=== PATIENT | male | born 1990 | race African-American/Black ===

== ENCOUNTER 2025-06-28 09:47 | Outpatient (REF) | payer OTHER, SELFPAY ==
--- OUTSIDE RECORDS SUMMARY | 2025-06-28 09:00 | XMS_ITS | Encounter Summary ---
Author Organization [employer] Address [address] [facility] [address] [place] [address] Care Team Providers Care Company Secretary Name Role Phone Beatris Rinaldi NP Primary Care Provider [phone] Reason for Referral * Consultation (Routine) - Pending Review Specialty Diagnoses / Procedures Referred By Kirt forrest Referred To Contact Sleep Medicine Diagnoses Apnea Beatris Rinaldi NP [address] [place] [address] Phone: tel: fax: Referral ID Status Reason Start Date Expiration Date Visits Requested Visits Authorized [id number] Pending Review Specialty Services Required 06/28/2025 06/28/2026 1 1 * Consultation (Routine) - Pending Review Specialty Diagnoses / Procedures Referred By Kirt forrest Referred To Contact Orthopaedic Surgery Diagnoses Chronic right shoulder pain Beatris Rinaldi NP [address] [place] [address] Phone: tel: fax: Referral ID Status Reason Start Date Expiration Date Visits Requested Visits Authorized [id number] Pending Review Specialty Services Required 06/28/2025 06/28/2026 1 1 * Consultation (Routine) - Pending Review Specialty Diagnoses / Procedures Referred By Kirt forrest Referred To Contact Physical Therapy Diagnoses Chronic right shoulder pain Beatris Rinaldi NP [address] [place] [address] Phone: tel: fax: Referral ID Status Reason Start Date Expiration Date Visits Requested Visits Authorized [id number] Pending Review Specialty Services Required 06/28/2025 06/28/2026 1 1 Encounter Details Date Type Department Care Team (Late st Contact Info) Description 06/28/2025 9:00 AM EDT Office Visit [facility] MEDICINE [address] [place] [address] Beatris Rinaldi NP [address] [place] [address] Mild intermittent asthma, unspecified whether complicated (Primary Dx); Elevated blood pressure reading without diagnosis of hypertension; Healthcare maintenance; Chronic right shoulder pain; Apnea; Allergic rhinitis due to other allergic trigger, unspecified seasonality; Dietary counseling; Exercise counseling Social History Tobacco Use Types Packs/Day Years Used Date Smoking Tobacco: Never Passive Smoke Exposure: Never Smokeless Tobacco: Never Tobacco Cessation:Counseling Given: Not Answered Alcohol Use Standard Drinks/Week Comments Never 0 (1 standard drink = 0.6 oz pur e alcohol) Depression Answer Date Recorded Patient Health Questionnaire-9 Score 0 06/28/2025 Patient Health Questionnaire-9 Score 0 06/28/2025 Last PHQ-9: Questionnaire Data Not on file 0 06/28/2025 Housing Stability Answer Date Recorded What is your housing situation today? I have jailyn ellington 06/28/[address] you li ve. Do you have problems with any of the following? None of the above 06/28/2025 Food Insecurity Answer Date Recorded Within the past 12 months, y ou worried that your food would run out before you got money to buy more: Never True 06/28/2025 Within the past 12 months,th e food you bought just didn't last and you didn't have enough money to get more: Never True Transportation Answer Date Recorded In the past 12 months, has l ack of transportation kept you from medical appts, meetings, work or from getting things needed for daily living? No 06/28/2025 Utilities Answer Date Recorded In the past 12 months, has t he electric, gas, oil or water company threatened to shut off services in your home? No 06/28/2025 Depression Answer Date Recorded Patient Health Questionnaire-2 Score 0 06/28/2025 Internet Access Answer Date Recorded Internet Access Q1 No 06/28/2025 Internet Access Q2 I do not want or need it 06/12 Sex and Gender Information Value Date Recorded Sex Assigned at Male 08/11/2022 10:33 AM EDT Legal Sex Male 10:33 AM EDT Gender Identity Male 06/26/2025 9:26 AM EDT Sexual Orientation Official Use Only; I nformation not collected 06/26/2025 9:26 AM EDT documented as of this encounter Last Filed Vital Signs Vital Sign Reading Time Taken Comments Blood Pressure 132/80 06/28/2025 9:06 AM EDT Pulse 73 06/28/2025 9:06 AM EDT Temperature 36.4 C (97.6 F) 06/28/2025 9:06 AM EDT Respiratory Rate 16 06/28/2025 9:06 AM EDT Oxygen Saturation 98% 06/28/2025 9:06 AM EDT Inhaled Oxygen Concentration - - Weight 103 kg (227 lb 3.2 oz) 06/28/2025 9:06 AM EDT Height 170.2 cm (5' 7 ) 06/28/2025 9:06 AM EDT Body Mass Index 35.58 06/28/2025 9:06 AM EDT documented in this encounter Functional Status * Over the past 2 weeks, how often have you been bothered by any of the following problems? Question Answer Date of Assessment Author Patient Health Questionnaire -2 Score 0 06/28/2025 9:08 AM EDT Josefina Mock MA * Little interest or pleasure in doing things Answer Date of Assessment Author Not at all 06/28/2025 9:08 AM EDT Tony Mock MA * Feeling down, depressed, or hopeless Answer Date of Assessment Author Not at all 06/28/2025 9:08 AM WYATTT Tony Mock MA * Trouble falling or staying asleep, or sleeping too much Answer Date of Assessment Author Not at all 06/28/2025 9:08 AM WYATTT Tony Mock MA * Feeling tired or having little energy Answer Date of Assessment Author Not at all 06/28/2025 9:08 AM EDT Tony Mock MA * Poor appetite or overeating Answer Date of Assessment Author Not at all 06/28/2025 9:08 AM Tony Mejias MA * Feeling bad about yourself - or that you are a failure or have let yourself or your family down Answer Date of Assessment Author Not at all 06/28/2025 9:08 AM Tony Mejias MA * Trouble concentrating on things, such as reading the newspaper or watching television Answer Date of Assessment Author Not at all 06/28/2025 9:08 AM Tony Mejias MA * Moving or speaking so slowly that other people could have noticed? Or the opposite - being so fidgety or restless that you have been moving around a lot more than usual. Answer Date of Assessment Author Not at all 06/28/2025 9:08 AM Tony Mejias MA * Thoughts that you would be better off or hurting yourself in some way Answer Date of Assessment Author Not at all 06/28/2025 9:08 AM Tony Mejias MA * Patient Health Questionnaire-9 Score Answer Date of Assessment Author 0 06/28/2025 9:08 AM Tony Mejias MA * Over the last 2 weeks, how often have you been bothered by any of the following problems? Question Answer Date of Assessment Author Feeling nervous, anxious, or on edge 0 06/28/2025 9:08 AM Josefina Mejias MA Not being able to stop or co ntrol worrying 0 06/28/2025 9:08 AM Josefina Mejias MA Worrying too much about diff erent things 0 06/28/2025 9:08 AM Josefina Mejias MA Trouble relaxing 0 06/28/2025 9:08 AM Josefina Torre MA Being so restless that it is hard to sit still 0 06/28/2025 9:08 AM Josefina Mejias MA Becoming easily annoyed or irritable 0 06/28/2025 9:08 AM Josefina Mejias MA Feeling afraid as if somethi ng awful might happen 0 06/28/2025 9:08 AM EDT Josefina Mock MA WARD-7 Total Score 0 06/28/2025 9:08 AM EDT Josefina Mock MA documented as of this encounter Miscellaneous Notes * Assessment & Plan Note - Beatris Rinaldi NP - 06/28/2025 9:00 AM EDTAssociated Problem(s): Mild intermittent asthma * Assessment & Plan Note - Beatris Rinaldi NP - 06/28/2025 9:00 AM EDTAssociated Problem(s): Elevated blood pressure reading without diagnosis of hypertension * Assessment & Plan Note - Beatris Rinaldi NP - 06/28/2025 9:00 AM EDTAssociated Problem(s): Healthcare maintenance Orders: Lipid Panel, Standard; Future Comprehensive Metabolic Panel; Future Hemoglobin A1c; Future HIV-1/2 Antigen and Antibodies, Fourth Generation, with Reflexes; Future Hepatitis C Antibody with Reflex to HCV, RNA, Quantitative, Real-Time PCR; Future Chlamydia/N. Gonorrhoeae, PCR, Urine * Assessment & Plan Note - Beatris Rinaldi NP - 06/28/2025 9:00 AM EDTAssociated Problem(s): Chronic right shoulder pain Orders: Referral to Physical Therapy; Future Referral to Orthopaedic Surgery; Future * Assessment & Plan Note - Beatris Rinaldi NP - 06/28/2025 9:00 AM EDTAssociated Problem(s): Apnea Orders: Referral to Sleep Medicine; Future * Assessment & Plan Note - Beatris Rinaldi NP - 06/28/2025 9:00 AM EDTAssociated Problem(s): Allergic rhinitis * Assessment & Plan Note - Beatris Rinaldi NP - 06/28/2025 9:00 AM EDTAssociated Problem(s): Dietary counseling * Assessment & Plan Note - Beatris Rinaldi NP - 06/28/2025 9:00 AM EDTAssociated Problem(s): Exercise counseling documented in this encounter Plan of Treatment Upcoming Encounters Date Type Department Care Team (Late st Contact Info) Description 08/28/2025 10:15 AM EST Office Visit [facility] MEDICINE [address] [place] [address] Beatris Rinaldi NP [address] [place] [address] Scheduled Orders Name Type Priority Associated Diagnoses Orde r Schedule Lipid Panel, Standard Lab Routine Healthcare maintenance Expected: 06/28/2025 (Approximate), Expires: 06/28/2026 Comprehensive Metabolic Panel Lab Routine Healthcare maintenance Expected: 06/28/2025 (Approximate), Expires: 06/28/2026 Hemoglobin A1c Lab Routine Healthcare maintenance Expected: 06/28/2025 (Approximate), Expires: 06/28/2026 HIV-1/2 Antigen and Antibodies, Fourth Generation, with Reflexes Lab Routine Healthcare maintenance Expected: 06/28/2025 (Approximate), Expires: 06/28/2026 Hepatitis C Antibody with Reflex to HCV, RNA, Quantitative, Real-Time PCR Lab Routine Healthcare maintenance Expected: 06/28/2025, Expires: 06/28/2026 Chlamydia/N. Gonorrhoeae, PCR, Urine Lab Routine Healthcare maintenance Ordered: 06/28/2025 Scheduled Referrals Name Type Priority Associated Diagnoses Order Schedule Referral to Physical Therapy Outpatient Referral Routine Chronic right shoulder pain Expected: 06/28/2025 (Approximate), Expires: 06/28/2026 Referral to Orthopaedic Surgery Outpatient Referral Routine Chronic right shoulder pain Expected: 06/28/2025 (Approximate), Expires: 06/28/2026 Referral to Sleep Medicine Outpatient Referral Routine Apnea Expected: 06/28/2025 (Approximate), Expires: 06/28/2026 documented as of this encounter Visit Diagnoses Diagnosis Mild intermittent asthma, unspecified whether complicated- Primary Elevated blood pressure reading without diagnosis of hypertension Healthcare maintenance Chronic right shoulder pain Pain in joint, shoulder region Apnea Allergic rhinitis due to other allergic trigger, unspecified seasonality Dietary counseling Dietary surveillance and counseling Exercise counseling documented in this encounter Additional Health Concerns Assessment Noted Time PHQ-9 Depression Total Score: 0 06/28/20 9:08 AM EDT documented as of this encounter Care Teams Company Secretary Relationship Specialty Start Date End Date Beatris Rinaldi NP [address] [place] [id number] PCP - General Family Medicine 06/28/25 documented as of this encounter
--- OUTSIDE RECORDS SUMMARY | 2025-06-28 11:38 | XMS_ITS | Clinical Summary ---
Author Organization [facility] Address [address] [place] [address] Care Team Providers Care Medical Dermatologist Name Role Phone Unavailable Primary Care Provider Unavailabl e Social History Tobacco Use Types Packs/Day Years Used Date Smoking Tobacco: Never Assessed Sex and Gender Information Value Date Recorded Sex Assigned at Not on file Legal Sex Male 1:38 PM EDT Gender Identity Not on file Sexual Orientation Not on file Plan of Treatment Health Maintenance Due Date Last Done Comments Hepatitis B Vaccines (1 of 3 - 19+ 3-dose series) 2008 Cholesterol Screening (Lipid Panel) 05/04/2024 HIV Screening 05/04/2024 Hepatitis C Screening 05/04/2024 Social Influencers of Health Screening 05/04/2024 Depression Screening 10/12/2024 COVID-19 Vaccine (1 - 2023-2 5 season) 2025 Influenza Vaccine (#1) 2025 DTaP,Tdap,and Td Vaccines (2 - Td or Tdap) 01/26/2034 01/27/2024 HIB Vaccines Aged Out No longer eligi ble based on patient's age to complete this topic HPV Vaccines Aged Out No longer eligi ble based on patient's age to complete this topic Hepatitis A Vaccines Aged Out No long er eligible based on patient's age to complete this topic IPV Vaccines Aged Out No longer eligi ble based on patient's age to complete this topic MMR Vaccines Aged Out No longer eligi ble based on patient's age to complete this topic Meningococcal ACWY Vaccine Aged Out N o longer eligible based on patient's age to complete this topic Meningococcal B Vaccine Aged Out No l onger eligible based on patient's age to complete this topic Pneumococcal Vaccine: Pediat rics (0 to 5 Years) and At-Risk Patients (6 to 49 Years) Aged Out No longer eligi ble based on patient's age to complete this topic RSV Immunization Patients Un akhil 20 months Aged Out No longer eligible b ased on patient's age to complete this topic Varicella Vaccines Aged Out No longer eligible based on patient's age to complete this topic
--- OUTSIDE RECORDS SUMMARY | 2025-06-28 11:38 | XMS_ITS | Encounter Summary ---
Author Organization [employer] Address [address] [facility] [address] [place] [address] Care Team Providers Care Specialty Trimmer Name Role Phone Beatris Rinaldi RICH Primary Care Provider [phone] Encounter Details Date Type Department Care Team (Latest Contact Info) Description 06/28/2025 Travel Social History Tobacco Use Types Packs/Day Years Used Date Smoking Tobacco: Never Passive Smoke Exposure: Never Smokeless Tobacco: Never Alcohol Use Standard Drinks/Week Comments Never 0 [...] AM EDT documented as of this encounter Functional Status * Over the past 2 weeks, how often have you been bothered by any of the following problems? Question Answer Date of Assessment Author Patient Health Questionnaire -2 Score 0 06/28/2025 9:08 AM Josefina Mejias MA * Little interest or pleasure in doing things Answer Date of Assessment Author Not at all 06/28/2025 9:08 AM Tony Mejias MA * Feeling down, depressed, or hopeless Answer Date of Assessment Author Not at all 06/28/2025 9:08 AM Tony Mejias MA * Trouble falling or staying asleep, or sleeping too much Answer Date of Assessment Author Not at all 06/28/2025 9:08 AM Tony Mejias MA * Feeling tired or having little energy Answer Date of Assessment Author Not at all 06/28/2025 9:08 AM Tony Mejias MA * Poor appetite or overeating Answer [...] awful might happen 0 06/28/2025 9:08 AM Josefina Mejias MA WARD-7 Total Score 0 06/28/2025 9:08 AM Josefina Mejias MA documented as of this encounter Plan of Treatment Upcoming Encounters Date Type Department Care Team (Late st Contact Info) Description 08/28/2025 10:15 AM EST Office Visit [facility] MEDICINE [address] [place] [address] Beatris Rinaldi NP [address] [place] [address] documented as of this encounter Visit Diagnoses Not on filedocumented in this encounter Additional Health Concerns Assessment Noted Time PHQ-9 Depression Total Score: 0 06/28/20 9:08 AM EDT documented as of this encounter Care Teams Specialty Trimmer Relationship Specialty Start Date End Date Beatris Rinaldi NP [address] [place] [id number] PCP - General Family Medicine 06/28/25 documented as of this encounter
--- OUTSIDE RECORDS SUMMARY | 2025-06-28 11:38 | XMS_ITS | Clinical Summary ---
Author Organization [employer] Address [address] [facility] 7t [place] [address] Care Team Providers Care Embossing Toolsetter Name Role Phone Beatris Rinaldi RICH Primary Care Provider [phone] Allergies No known active allergies Medications fluticasone (Flonase) 50 MCG/ACT nasal spray Administer 1-2 sprays into each nostril Once per day. Shake gently. Before first use, prime pump. After use, clean tip and replace cap. 16 g 2 5 06/28/20 26 Active Active Problems Problem Noted Date Diagnosed Date Mild intermittent asthma 06/28/2025 Assessment & Plan (06/28/2025 9:50 AM EDT): Elevated blood pressure read ing without diagnosis of hypertension 06/28/2025 Assessment & Plan (06/28/2025 9:50 AM EDT): Healthcare maintenance 06/28/2025 Assessment & Plan (06/28/2025 9:50 AM EDT): Orders: Lipid Panel, Standard; Future Comprehensive Metabolic Panel; Future Hemoglobin A1c; Future HIV-1/2 Antigen and Antibodies, Fourth Generation, with Reflexes; Future Hepatitis C Antibody with Reflex to HCV, RNA, Quantitative, Real-Time PCR; Future Chlamydia/N. Gonorrhoeae, PCR, Urine Chronic right shoulder pain 06/28/2025 Assessment & Plan (06/28/2025 9:50 AM EDT): Orders: Referral to Physical Therapy; Future Referral to Orthopaedic Surgery; Future Apnea 06/28/2025 Assessment & Plan (06/28/2025 9:50 AM EDT): Orders: Referral to Sleep Medicine; Future Allergic rhinitis 06/28/2025 Assessment & Plan (06/28/2025 9:50 AM EDT): Dietary counseling 06/28/2025 Overview (06/28/2025): Dietary Recommendations: Fruits, vegetables, whole grains, protein foods, and fat-free or low-fat dairy products are healthy choices. Eat different types of protein foods in your diet. This can include seafood, lean meats, poultry, beans, peas, lentils, nuts, seeds, soy products, and eggs. Limit foods and beverages higher in added sugars, saturated fat, and sodium. Exercise Recommendations: At least 150 minutes of moderate-intensity physical activity per week, or an equivalent combination of moderate- and vigorous-intensity activity Assessment & Plan (06/28/2025 9:50 AM EDT): Exercise counseling 06/28/2025 Assessment & Plan (06/28/2025 9:50 AM EDT): Encounters Date Type Department Care Team Description 06/28/2025 9:00 AM EDT Office Visit [facility] MEDICINE [address] [place] [address] Beatris Rinaldi NP Mild intermittent asthma, unspecified whether complicated (Primary Dx); Elevated blood pressure reading without diagnosis of hypertension; Healthcare maintenance; Chronic right shoulder pain; Apnea; Allergic rhinitis due to other allergic trigger, unspecified seasonality; Dietary counseling; Exercise counseling 06/28/2025 Travel 06/22/2025 Telephone [facility] [address] [place] [address] Beatris Rinaldi NP from Last 3 Months Social History Tobacco Use Types Packs/Day Years [...] nformation not collected 06/26/2025 9:26 AM EDT Last Filed Vital Signs Vital Sign Reading [...] Mass Index 35.58 06/28/2025 9:06 AM EDT Plan of Treatment Upcoming Encounters Date Type Department Care Team (Late st Contact Info) Description 08/28/2025 10:15 AM EST Office Visit [facility] MEDICINE [address] [place] [address] Beatris Rinaldi NP [address] [place], [place] [id number] Health Maintenance Due Date Last Done Comments HIV Screening 1989 Lipid Panel 1989 Family Planning (PISQ) 2004 HPV Vaccines (1 - Male 3-dos e series) 2004 Hepatitis C Screening 2007 Hepatitis B Vaccines (1 of 3 - 19+ 3-dose series) 2008 Pneumococcal Vaccine: Pediatrics (0 to 5 Years) and At-Risk Patients (6 to 49) Years (1 of 2 - PCV) 2008 COVID-19 Vaccine ( - 2023-2 5 season) 2025 Influenza Vaccine (#1) 2025 Alcohol/Substance Use Screening 06/28/2026 06/28/2025 Depression Screening 06/28/2026 06/28/2025, 06/28/2025 Disability Screening 06/28/2026 06/28/2025 SDOH Screening 06/28/2026 06/28/2025 Tobacco Screening 06/28/2026 06/28/2025 DTaP/Tdap/Td Vaccines (2 - T d or Tdap) 01/26/2034 01/27/2024 Zoster Vaccines (1 of 2) 2039 RSV Patients and Patients Aged 60 years or older (1 - 1-dose 75+ series) 2064 HIB Vaccines Aged Out No longer eligi [...] patient's age to complete this topic Meningococcal Vaccine Aged Out No poncho lisa eligible based on patient's age to complete this topic RSV under 20 months Aged Out No longe r eligible based on patient's age to complete this topic Rotavirus Vaccines Aged Out No longer eligible based on patient's age to complete this topic Insurance [employer] PPO Care Teams Embossing Toolsetter Relationship Specialty Start Date End Date Beatris Rinaldi NP [address] [place] [id number] PCP - General Family Medicine 06/28/25
[2025-06-28 11:51] LABS: Hemoglobin A1C 145.1436 umol/L; Total Hemoglobin (HGBA1C) 3839.3287 umol/L
[2025-06-28 11:59] LABS: Alanine Aminotransferase 43 U/L (0-40); Albumin Level 4.4 g/dL (3.5-5.0); Alkaline Phosphatase 104 U/L (39-117); Anion Gap 8 (12-20); Aspartate Amino Transferase 32 U/L (5-37); Blood Urea Nitrogen 11 mg/dL (9-16); Calcium 9.0 mg/dL (8.4-10.2); Carbon Dioxide 29 mmol/L (22-29); Chloride 110 mmol/L (96-108); Cholesterol 154 mg/dL (<200); Estimated Glomerular Filt Rate > 60; HDL Cholesterol 43 mg/dL (>40); Potassium 4.1 mmol/L (3.3-5.1); Sodium 143 mmol/L (135-145); Total Protein 6.8 g/dL (6.5-8.0); Triglycerides 67 mg/dL (<150)
[2025-06-29 05:15] LABS: HIV Num 1 0.08 S/CO (0.00-0.99); ~HepC Num1 0.09 S/CO (0.00-0.79); ~Hepatitis C Antibody Nonreactive (Nonreactive)
[2025-06-29 10:04] LABS: CT PCR Urine NOT DETECTED (Not Detect.); NG PCR Urine NOT DETECTED (Not Detect.)
== END 2025-06-28 09:48 | disposition home or self-care (01) ==
LOC: HO.HHCL 09:47
PROVIDERS: PCP Nurse Practitioner Family; Visit Provider Nurse Practitioner Family
DX: Z00.00 Encounter for general adult medical examination without abnormal findings (principal); Z13.6 Encounter for screening for cardiovascular disorders; Z13.1 Encounter for screening for diabetes mellitus; Z11.59 Encounter for screening for other viral diseases; Z11.4 Encounter for screening for human immunodeficiency virus [HIV]
CPT/HCPCS: 36415; 80053; 80061; 83036; 86803; 87389; 87491; 87591